=== PATIENT | female | born 1990 | race Caucasian/White ===

== ENCOUNTER 2017-05-24 05:57 | Inpatient (IN) | payer OTHER ==
[~2017-05-24] VITALS: Ht 167.6 cm; Wt 108.0 kg
[~2017-05-24 05:57] MED LIST: ATIVAN1 MG PO; CLINDAMYCIN HC300 MG PO; CYCLOBENZAPRINE10 MG PO; DEPO-PROVE150 MG/1 M IM; DICLOFENAC SODI75 MG PO; FOLIC ACID0.8 MG PO; METHOTREXATE2.5 MG PO; MULTIVITAMINS1 EAC7 PO; PRENATAL FORMU1 EACH PO; RANITIDINE HCL150 MG PO
--- NOTE | 2017-05-24 11:52 | NUR ---
05/24/17 1152 Patricia Kee 1144 PATIENT ARRIVES TO ROOM 103 AWAKE, ALERT AND ORIENTED X3. RESP EVEN AND UNLABORED. ON ROOM AIR. NO COMPLAINTS. BP ELEVATED. LESLIE WOOD AWARE, NO NEW ORDERS.
--- NOTE | 2017-05-25 09:01 | PR ---
[facility] [address] [facility] [address] [place] [address] Signed PP Progress Notes Datetime Report Generated by CPN: 05/25/2017 09:01 SUBJECTIVE: [id number] Pain: Within normal limits Nausea/Vomiting: Denies Flatus: Yes Vital Signs: [id number] Vital Signs: Reviewed; Within Normal Limits EXAM: [id number] Cardiovascular: Normal Respiratory: Normal Abdomen/Uterus: Normal Lochia: Normal Vulva/Perineum: Normal Breasts: Normal CVA Tenderness: Normal Extremities: Normal Incision: Normal Progress: Normal IMPRESSION/PLAN/PROCEDURES: [id number] Impression: Normal progression Plan: Continue present management Procedures: None Signing Physician: Ml Rosales MD CC: *Electronically Signed* 05/25/17 09 ML ROSALES MD PATIENT NAME: GRIFFIN LR PROGRESS NOTE DATE OF : 89 PHYSICIAN: ML ROSALES MD RPT #: [id number] REPORT IS CONFIDENTIAL AND NOT TO BE RELEASED WITHOUT AUTHORIZATION
--- NOTE | 2017-05-26 07:46 | PR ---
[facility] [address] [facility] [place], [place] [address] Signed PP Progress Notes Datetime Report Generated by CPN: 05/26/2017 07:45 SUBJECTIVE: [id number] Pain: Within normal limits Nausea/Vomiting: Denies Flatus: Yes Bowel Movement: Yes Vital Signs: [id number] Vital Signs: Reviewed; Within Normal Limits EXAM: [id number] Cardiovascular: Normal Respiratory: Normal Abdomen/Uterus: Normal Lochia: Normal Vulva/Perineum: Normal Breasts: Normal CVA Tenderness: Normal Extremities: Normal Incision: Normal Progress: Normal IMPRESSION/PLAN/PROCEDURES: [id number] Impression: Normal progression Plan: Remove art; Discharge Procedures: None Progress Notes: patient doing well postoperatively. d/c home today Signing Physician: Ml Rosales MD CC: *Electronically Signed* 05/26/17 0745 ML ROSALES MD PATIENT NAME: GRIFFIN LR PROGRESS NOTE DATE OF : 89 PHYSICIAN: ML ROSALES MD RPT #: [id number] REPORT IS CONFIDENTIAL AND NOT TO BE RELEASED WITHOUT AUTHORIZATION
--- NOTE | 2017-05-31 08:56 | OR ---
[facility] [address] [place], [place] [address] Signed DATE OF SERVICE: 05/24/2017 PREOPERATIVE DIAGNOSES: 26-year-old, 2, para 1, at 40 weeks and 2 days estimated gestational age with breech presentation. Oligohydramnios. Oligohydramnios. Rheumatoid arthritis. Stable throughout . Group B Strep negative. POSTOPERATIVE DIAGNOSES: 26-year-old, 2, para 1, at 40 weeks and 2 days estimated gestational age with breech presentation. Oligohydramnios. Oligohydramnios. Rheumatoid arthritis. Stable throughout . Group B Strep negative. PROCEDURE: Primary low transverse section. SURGEON: Ml Dixon MD. LICENSED HOME INSPECTOR SURGEON: Beau Lynn MD ANESTHESIA: Spinal per Smitha Crabtree CRNA. IV FLUIDS: 600 cc of lactated Ringer's. URINE OUTPUT: 400 cc with Peters draining to gravity. ESTIMATED BLOOD LOSS: 500 cc. FINDINGS: Baby boy in double footling breech presentation. PROCEDURE TECHNIQUE: The patient was taken back to the operating room with IV fluids running. She was placed on the operating table in the upright position and underwent spinal anesthesia. She was then placed in the supine position with a left lateral tilt and appropriate anesthesia was then noted. A sterile catheter was placed and she was prepped and draped in normal sterile fashion. A Pfannenstiel skin incision was then made with a scalpel carried down through the subcutaneous tissue to shu the fascia in the midline. The incision was extended laterally with Horner scissors. The inferior edge of the fascia was grasped with Electronically Signed By: ML DIXON MD 05/31/17 0856 PATIENT NAME: GRIFFIN LR OPERATIVE REPORT DATE OF : 89 PHYSICIAN: ML DIXON MD REPORT #: [id number] REPORT IS CONFIDENTIAL AND NOT TO BE RELEASED WITHOUT AUTHORIZATION [facility] [address] [place], [place] [address] Signed Jules clamps x2, and away from the rectus abdominis muscles both bluntly and sharply. Same was performed superiorly. The rectus abdominis muscles were in the midline and the peritoneum identified, tented up with mosquito clamps and entered with Metzenbaum scissors. That incision was extended superiorly and inferiorly. An Omid retractor was then placed into the incision anterior abdominal wall. The uterovesical fascia was visualized and Metzenbaum scissors were utilized to incise the fascia and create a bladder flap, which was pushed down away from the lower uterine segment. The uterus was then incised with a scalpel. Allis-Garcia were used to better visualize the incision as it was someone it was not thinned out in the lower uterine segment. Once the amniotic sac w a s visualized, incision was then bluntly extended and the amniotic sac was ruptured with a sharp pickups. The double footling breech was noted. Baby's right hip was at the level of the incision and 1st the right leg than the left was delivered through the i ncision. Baby's legs were then grasped and the baby was then elevated up and out of the uterus. The arms were reduced and the head readily delivered. The baby was bulb suctioned mouth and then nares and passed off to awaiting blood bank calendar control clerk. Attention was then turned to the uterus, where cord blood was drawn and placenta was then manually delivered. The apices of the uterus were clamped with T clamps along with the inferior and superior edges of the incision. All clots and debris were cleared out with laparotomy, dry laparotomy sponges and 0 Monocryl was used to reapproximate the incision in a continuous running locked fashion. A 2nd layer was used to imbricate the 1st with a 10 vertical mattress type suture in continuous running fashion. Good hemostasis was achieved. The pelvis was then copiously irrigated and small area of oozing was noted that was controlled with cautery. The Omid retractor was then removed from the pelvis and the peritoneum was identified, clamped x3 with Estella clamps. Rich retractors were then used to visualize the incision and the uterine incision and an ACL graft was placed over the incision. The peritoneum was then reapproximated with 3-0 Vicryl in continuous running fashion. The Estella clamps removed and attention was then turned to the rectus abdominis muscles which were inspected for bleeding. They were irrigated with normal saline and small area of oozing was controlled with cautery. The muscles were then reapproximated with 0 Vicryl interrupted x3 and ACL powder was sprinkled over the rectus abdominis muscles. Attention was then turned to the fascia, which was reapproximated with 0 Vicryl in continuous running fashion from the right apex to the midline and then from the left apex to the midline. Good hemostasis was achieved on the layer. Subcutaneous layer was inspected found to be relatively hemostatic. It was irrigated with normal saline and small areas of oozing were controlled with cautery. It was then reapproximated with 2-0 Vicryl in continuous running fashion. The skin w a s reapproximated with art and a pressure dressing was placed over the incision. The uterus was then expressed of all clot and debris. The patient was taken to recovery room in stable condition along with her baby, who had been placed skin to skin duri ng the procedure. There were no complications. The sponge, instrument, and needle counts were correct. Electronically Signed By: ML DIXON MD 05/31/17 0856 PATIENT NAME: GRIFFIN LR OPERATIVE REPORT DATE OF : 89 PHYSICIAN: ML DIXON MD REPORT #: [id number] REPORT IS CONFIDENTIAL AND NOT TO BE RELEASED WITHOUT AUTHORIZATION [address] [address] Signed MD MADISON Parr/Zonia /[id number] Electronically Signed By: ML DIXON MD 05/31/17 0856 PATIENT NAME: GRIFFIN LR OPERATIVE REPORT DATE OF : 89 PHYSICIAN: ML DIXON MD REPORT #: [id number] REPORT IS CONFIDENTIAL AND NOT TO BE RELEASED WITHOUT AUTHORIZATION
== END 2017-05-26 12:00 | disposition home or self-care (01) | DRG 765 ==
LOC: FBC 05:57
PROVIDERS: ADMIT Obstetrics & Gynecology
PROC: 10D00Z1 Extraction of Products of Conception, Low, Open Approach (ICD-10-PCS; principal; 2017-05-24 10:45)
DX: O32.8XX0 Maternal care for other malpresentation of fetus, not applicable or unspecified (principal); O41.03X0 Oligohydramnios, third trimester, not applicable or unspecified; O90.81 Anemia of the puerperium; D64.9 Anemia, unspecified; O99.89 Other specified diseases and conditions complicating pregnancy, childbirth and the puerperium; M06.9 Rheumatoid arthritis, unspecified; Z88.0 Allergy status to penicillin; Z88.7 Allergy status to serum and vaccine; Z87.891 Personal history of nicotine dependence; Z3A.40 40 weeks gestation of pregnancy; Z37.0 Single live birth
CPT/HCPCS: 01961; 36415; 85027; J0690; J1100; J1885; J2274; J2370; J2405; J2590; J2765; J3010